=== PATIENT | male | born 1985 | race African-American/Black ===

== ENCOUNTER 2018-08-11 07:41 | Emergency (ER) | payer OTHER ==
[2018-08-11] MEDS ORDERED: Ondansetron 4 MG Tab.DIS PO ONE (08:16)
[2018-08-11] MEDS ORDERED: Dicyclomine 10 MG Cap PO ONE (08:16)
--- NOTE | 2018-08-11 08:31 | EDM.PDOC ---
ED HPI GENERAL MEDICAL PROBLEM - General Chief Complaint: Abdominal Pain Stated Complaint: ABDOMINAL PAIN Time Seen by Provider: 08/11/18 08:04 Source of Information: Reports: Patient, RN Notes Reviewed - History of Present Illness INITIAL COMMENTS - FREE TEXT/NARRATIVE: 33-year-old male comes in with intermittent abdominal pain first started yesterday afternoon. He states he's been getting intermittent sharp cramps upper mid abdomen without radiation. The pain with the cramping will be very severe and then let up and go away for periods of time. He felt better after drinking some water yesterday afternoon and did well until later last evening when the pain started coming back again. She had continued intermittent cramps throughout the night and this morning. Right now at this time he is pain-free. He did have some slight nausea but there is been no vomiting. One loose stool yesterday but no watery diarrhea. He does not feel that he is been constipated. No fever or chills. No prior abdominal surgeries. Middle Abdomen Pain Score (Numeric/FACES): 4 - Related Data Allergies Allergy/AdvReac Type Severity Reaction Status Date / Time No Known Allergies Allergy Verified 08/11/18 07:53 Home Meds: Home Meds . [No Known Home Meds] 08/11/18 [History] Past Medical History - Past Health History Medical/Surgical History: Denies Medical/Surgical History Social & Family History - Tobacco Use Smoking Status *Q: Never Smoker - Caffeine Use Caffeine Use: Reports: Coffee - Recreational Drug Use Recreational Drug Use: No ED ROS GENERAL - Review of Systems Review Of Systems: See Below Constitutional: Denies: Fever, Chills, Diaphoresis HEENT: Reports: No Symptoms Respiratory: Reports: No Symptoms Cardiovascular: Denies: Chest Pain GI/Abdominal: Reports: Abdominal Pain, Nausea. Denies: Constipation, Diarrhea, Hematochezia, Melena, Vomiting : Reports: No Symptoms Musculoskeletal: Reports: No Symptoms Skin: Reports: No Symptoms ED EXAM, GI/ABD - Physical Exam Exam: See Below General Appearance: Alert, No Apparent Distress Throat/Mouth: Normal Inspection Respiratory/Chest: No Respiratory Distress, Lungs Clear, Normal Breath Sounds Cardiovascular: Regular Rate, Rhythm GI/Abdominal Exam: Soft, Tender (Primary mild tenderness upper mid abdomen, abdomen otherwise completely soft and nontender), Other (Right lower quadrant completely nontender left lower quadrant nontender) Back Exam: No: CVA Tenderness (L), CVA Tenderness (R) Extremities: Normal Inspection Neurological: Oriented Course - Vital Signs Last Recorded V/S: Last Vital Signs Temp 98.0 F 08/11/18 07:48 Pulse 55 L 08/11/18 07:48 Resp 16 08/11/18 07:48 BP 130/84 08/11/18 07:48 Pulse Ox 99 08/11/18 07:48 - Orders/Labs/Meds Meds: Medications Discontinued Medications Generic Name Dose Route Start Last Admin Trade Name Anna PRN Reason Stop Dose Admin Dicyclomine HCl 20 mg 08/11/18 08:16 08/11/18 08:25 Bentyl PO 08/11/18 08:17 20 mg ONETIME ONE Administration Ondansetron HCl 4 mg 08/11/18 08:16 08/11/18 08:25 Zofran Odt PO 08/11/18 08:17 4 mg ONETIME ONE Administration - Re-Assessments/Exams Free Text/Narrative Re-Assessment/Exam: 08/11/18 09:04 Labs, imaging not likely to be helpful at this time, have given Zofran 4 mg ODT , Bentyl 20 mg by mouth. He did eat a few hard-boiled eggs yesterday morning that may have been "old". Not aware of any other questionable food ingestion. Discharge instructions as documented. Departure - Departure Time of Disposition: 08:28 Disposition: Home, Self-Care 01 Condition: Fair Clinical Impression: Abdominal pain Qualifiers: Abdominal location: generalized Qualified Code(s): R10.84 - Generalized abdominal pain - Discharge Information Instructions: Abdominal Pain, Adult Referrals: PCP,None [Primary Care Provider] - Forms: ED Department Discharge Additional Instructions: Your symptoms strongly suggest intestinal and colon spasms, likely secondary to something you have eaten. This should all get better over the next 12-24 hours. clear liquids until this evening. Than careful bland diet as toelrated. You have been given Zofran and Bentyl while here in the ED, medications that should help you feel better. Avoid milk and all dairy products today and tomorrow. Pickup some probiotic medication, available [id number] and take that twice daily for at least 5 days. Follow-up clinic if not to normal by Monday. Return to ED if symptoms worsening in any way, especially if pain localizing to right lower abdomen as discussed.
== END 2018-08-11 08:38 | disposition home or self-care (01) ==
LOC: JD.ED 07:41
DX: R10.84 Generalized abdominal pain (principal)
CPT/HCPCS: 99284; A9270; 99283